=== PATIENT | male | born 1995 | race Caucasian/White ===

== ENCOUNTER 2018-12-28 23:48 | Emergency (ER) | payer SELFPAY ==
--- NOTE | 2018-12-29 00:13 | Emergency Department Record ---
History of Present Illness - General Chief complaint: ENT Stated complaint: SORE THROAT Time Seen by Provider: 12/28/18 23:55 Source: Patient Mode of Arrival: Ambulatory Limitations: No limitations - History of Present Illness Initial comments: 23 yo male presents to ED for evaluation of sore throat symptoms for the past 3 days. Patient denies fevers, chills, or cough symptoms. Patient has not taken anything for his symptoms prior to arrival. Patient is also concerned about "poison katie" that is starting on the right forearm. Patient denies health problems at his baseline. MD complaint: Sore throat Onset/Timin -: Days(s) Location: Throat Severity: Mild Severity scale (1-10): 8 Quality: Aching, Sharp Consistency: Constant Improves with: None Worsens with: Other Associated Symptoms: Cough, Pain with swallowing, Sore throat - Related Data Previous Rx's Medication Instructions Recorded Prednisone [Prednisone 20Mg] 20 mg PO BID #15 tab 12/29/18 Allergies Allergy/AdvReac Type Severity Reaction Status Date / Time No Known Drug Allergies Allergy Verified 12/28/18 23:54 Travel Screening - Travel/Exposure Within Last 30 Days Have you traveled within the last 30 days?: No - Travel/Exposure Within Last Year Have you traveled outside the [place] in the last year?: No - Additonal Travel Details Have you been exposed to anyone with a communicable illness?: No - Travel Symptoms Symptom Screening: None Review of Systems Constitutional: Denies: Chills, Fever, Malaise, Night sweats Eyes: Denies: Eye discharge, Eye pain ENT: Reports: Throat pain. Denies: Congestion, Ear pain, Epistaxis Respiratory: Denies: Cough, Dyspnea Cardiovascular: Denies: Chest pain, Dyspnea on exertion Endocrine: Denies: Fatigue, Heat or cold intolerance Gastrointestinal: Denies: Abdominal pain, Nausea, Vomiting Genitourinary: Denies: Incontinence, Retention Musculoskeletal: Denies: Arthralgia, Back pain Skin: Denies: Bruising, Change in color Neurological: Denies: Abnormal gait, Confusion, Headache, Seizure Psychiatric: Denies: Anxiety Hematological/Lymphatic: Denies: Anemia, Blood Clots Past Medical History - SOCIAL HISTORY Smoking Status: Current every day smoker Alcohol Use: None Drug Use: None - RESPIRATORY Hx Respiratory Disorders: No - CARDIOVASCULAR Hx Cardio Disorders: No - NEURO Hx Neuro Disorders: No - GI Hx GI Disorders: No - Hx Genitourinary Disorders: No - ENDOCRINE Hx Endocrine Disorders: No - MUSCULOSKELETAL Hx Musculoskeletal Disorders: No - PSYCH Hx Psych Problems: No - HEMATOLOGY/ONCOLOGY Hx Hematology/Oncology Disorders: No Family Medical History Any Significant Family History?: No Physical Exam - General General Appearance: Alert, Oriented x3, Cooperative, Mild distress Limitations: No limitations - Head Head exam: Atraumatic, Normocephalic, Normal inspection Head exam detail: negative: Abrasion, Contusion, Kenny's sign, General tenderness, Hematoma, Laceration - Eye Eye exam: Normal appearance. negative: Conjunctival injection, Periorbital swelling, Periorbital tenderness, Scleral icterus - ENT Ear exam: negative: Auricular hematoma, Auricular trauma Nasal Exam: negative: Active bleeding, Discharge, Dried blood, Foreign body Mouth exam: negative: Drooling, Laceration, Muffled voice, Tongue elevation Throat exam: Tonsillar erythema. negative: Tonsillomegaly, R peritonsillar mass , L peritonsillar mass - Neck Neck exam: Normal inspection. negative: Meningismus, Tenderness - Respiratory Respiratory exam: Normal lung sounds bilaterally. negative: Rales, Respiratory distress, Rhonchi, Stridor - Cardiovascular Cardiovascular Exam: Regular rate, Normal rhythm, Normal heart sounds - GI/Abdominal GI/Abdominal exam: Soft. negative: Rebound, Rigid, Tenderness - Rectal Rectal exam: Deferred - exam: Deferred - Extremities Extremities exam: Other (Mild contact dermatitis to the right volar aspect of the right forearm). negative: Calf tenderness, Pedal edema, Tenderness - Back Back exam: Denies: CVA tenderness (R), CVA tenderness (L) - Neurological Neurological exam: Alert, Normal gait, Oriented X3 - Psychiatric Psychiatric exam: Normal affect, Normal mood - Skin Skin exam: Normal color. negative: Abrasion Type of lesion: negative: abrasion Course Vital Signs 12/28/18 23:55 Temperature 98.1 F Pulse Rate 78 Respiratory 18 Rate Blood Pressure 129/75 Pulse Ox 96 - Reevaluation(s) Reevaluation #1: 12/29/18 00:13 Rapid strep: Negative Patient was updated on his result, symptoms appears clinically c/w viral pharyngitis. Patient was given instructions for symptomatic treatment, appears stable for discharge at this time. Disposition Disposition: Discharge Clinical Impression: Contact dermatitis Pharyngitis Qualifiers: Pharyngitis/tonsillitis etiology: unspecified etiology Qualified Code(s): J02.9 - Acute pharyngitis, unspecified Disposition: Home, Self-Care Condition: (2) Stable Instructions: Pharyngitis (ED) Additional Instructions: Return to ED if your symptoms worsen or if you have any concerns. Ibuprofen and Tylenol as directed. Prednisone as directed. Follow-up with your family doctor in 3-5 days as directed. Prescriptions: Prednisone [Prednisone 20Mg] 20 mg PO BID #15 tab Forms: Patient Portal Access Time of Disposition: 00:14 Quality - Quality Measures Quality Measures: N/A - Blood Pressure Screening Does Patient Have Any of the Following: No Blood Pressure Classification: Pre-Hypertensive BP Reading Systolic Measurement: 129 Diastolic Measurement: 75 Screening for High Blood Pressure: < Pre-Hypertensive BP, F/U Documented > [ [id number]] Pre-Hypertensive Follow-up Interventions: Referral to alternative/primary care provider.
[2018-12-29] MEDS ORDERED: PREDNISONE 20 MG TAB PO ONE (00:22)
== END 2018-12-29 00:30 | disposition home or self-care (01) ==
LOC: ER 23:48
DX: J02.9 Acute pharyngitis, unspecified (principal); L25.9 Unspecified contact dermatitis, unspecified cause; F17.210 Nicotine dependence, cigarettes, uncomplicated
CPT/HCPCS: 99282; 99283; 87880; J7512